=== PATIENT | female | born 1965 | race Caucasian/White ===

== ENCOUNTER 2020-02-26 05:42 | Day surgery (SDC) | payer OTHER, SELFPAY ==
[~2020-02-26] VITALS: Ht 157.5 cm; Wt 61.2 kg
[2020-02-26] MEDS ORDERED: SEVOFLURANE 250 ML BTL INH ONE (07:20)
[2020-02-26] MEDS ORDERED: MIDAZOLAM 2 MG/2 ML VIAL ONE (07:20)
[2020-02-26] MEDS ORDERED: DEXAMETHASONE 4 MG/ML VIAL ONE ×2 (07:20→19:34)
[2020-02-26] MEDS ORDERED: fentaNYL citrate 0.05 MG/ML VIAL ONE ×2 (07:20→19:34)
[2020-02-26] MEDS ORDERED: KETOROLAC 30 MG/ML VIAL ONE (07:20)
[2020-02-26] MEDS ORDERED: ONDANSETRON 4 MG/2 ML VIAL ONE ×2 (07:20→19:34)
[2020-02-26] MEDS ORDERED: PROPOFOL 200 MG/20 ML VIAL IV ONE ×2 (07:20→19:34)
[2020-02-26] MEDS ORDERED: KETOROLAC 30 MG/ML VIAL IVP SCH (07:30)
[2020-02-26] MEDS ORDERED: diphenhydrAMINE 50 MG/ML VIAL IVP PRN (08:00)
[2020-02-26] MEDS ORDERED: HYDROmorphone 1 MG/ML AMP IVP PRN (08:00)
[2020-02-26] MEDS ORDERED: ONDANSETRON 4 MG/2 ML VIAL IVP PRN (08:00)
[2020-02-26] MEDS ORDERED: MEPERIDINE 25 MG/ML SYR IVP PRN (08:00)
[2020-02-26] MEDS ORDERED: LACTATED RINGERS 1,000 ML IV SCH (08:00)
[2020-02-26] MEDS ORDERED: ePHEDrine 50 MG/ML VIAL ONE (19:34)
== END 2020-02-26 10:36 | disposition home or self-care (01) ==
LOC: MDS 05:42 → MMU 05:43 → MDS 10:36
PROVIDERS: ATTEND Obstetrics & Gynecology
DX: N92.0 Excessive and frequent menstruation with regular cycle (principal); N87.9 Dysplasia of cervix uteri, unspecified; E03.9 Hypothyroidism, unspecified; Z98.82 Breast implant status; Z90.89 Acquired absence of other organs; Z20.828 Contact with and (suspected) exposure to other viral communicable diseases
CPT/HCPCS: 36415; 58563; 71045; 81025; 86886; 86900; 86901; J1100; J1885; J2175; J2250; J2405; J2704; J3010; J7030; J7120; U0003; 88305

== ENCOUNTER 2022-05-07 09:02 | Day surgery (SDC) | payer OTHER ==
[~2022-05-07] VITALS: Ht 157.5 cm; Wt 70.3 kg
[2022-05-07 10:03] LABS: BASOPHILS % (AUTO) 0.6 % (0.0-2.0); EOSINOPHILS # (AUTO) 0.1 K/uL (0-0.4); HEMATOCRIT 39.3 % (36-48); HEMOGLOBIN 12.7 g/dL (12.0-16.0); LYMPHOCYTES # (AUTO) 2.9 K/uL (2.5-16.5); MEAN CORPUSCULAR HEMOGLOBIN 29 pg (27-31); MEAN CORPUSCULAR HGB CONC 32 g/dL (33-37); MEAN CORPUSCULAR VOLUME 88.9 fL (80-94); MONOCYTES # (AUTO) 0.5 K/uL (0.8-1.0); MONOCYTES % (AUTO) 8.9 % (1.7-9.3); NEUTROPHILS # (AUTO) 2.5 K/uL (1.8-7.7); NEUTROPHILS % (AUTO) 40.5 % (42.2-75.2); PLATELET COUNT (AUTO) 224 K/uL (140-450); RED BLOOD CELL COUNT(AUTO) 4.42 MIL/uL (4.20-5.40); RED CELL DISTRIBUTION WIDTH 13.6 % (11.6-13.7); WHITE BLOOD COUNT (AUTO) 6.1 K/uL (4.8-10.8)
[2022-05-07 10:19] LABS: ANION GAP 10.6 (8-16); CARBON DIOXIDE 27.5 mmol/L (21-32); CREATININE 0.4 mg/dL (0.6-1.3); POTASSIUM 4.1 mmol/L (3.5-5.1)
[2022-05-07 10:25] LABS: ALBUMIN 3.7 g/dL (3.4-5.0); ANION GAP 12.8 (8-16); CARBON DIOXIDE 26.4 mmol/L (21-32); CREATININE 0.4 mg/dL (0.6-1.3); POTASSIUM 5.2 mmol/L (3.5-5.1); TOTAL BILIRUBIN 0.5 mg/dL (0.0-1.0)
[2022-05-07] MEDS ORDERED: CONJUGATED ESTROGENS VAG CREAM 42 GM TUBE VG SCH (14:40)
[2022-05-07] MEDS ORDERED: BUPIVACAINE-MPF 0.25% 30 ML VIAL INJ ONE (14:42)
[2022-05-07] MEDS ORDERED: LIDOCAINE 1% 500 MG/50 ML VIAL ONE (14:43)
[2022-05-07] MEDS ORDERED: PROPOFOL 200 MG/20 ML VIAL IV ONE ×2 (15:52→15:55)
[2022-05-07] MEDS ORDERED: KETOROLAC 30 MG/ML VIAL ONE ×2 (15:52→16:01)
[2022-05-07] MEDS ORDERED: DESFLURANE 240 ML BTL INH ONE (15:52)
[2022-05-07] MEDS ORDERED: DEXAMETHASONE 4 MG/ML VIAL ONE ×2 (15:52→16:01)
[2022-05-07] MEDS ORDERED: fentaNYL citrate 0.05 MG/ML VIAL ONE ×2 (15:52→16:00)
[2022-05-07] MEDS ORDERED: ceFAZolin 2,000 MG VIAL ONE (15:52)
[2022-05-07] MEDS ORDERED: ONDANSETRON 4 MG/2 ML VIAL ONE ×2 (15:52→16:01)
[2022-05-07] MEDS ORDERED: BUPIVACAINE-MPF/EPI 0.5% 30 ML VIAL INJ ONE (16:10)
[2022-05-07] MEDS ORDERED: ONDANSETRON 4 MG/2 ML VIAL IVP PRN (16:55)
[2022-05-07] MEDS ORDERED: HYDROmorphone 1 MG/ML AMP IVP PRN (16:55)
[2022-05-07] MEDS ORDERED: KETOROLAC 30 MG/ML VIAL IVP SCH (18:40)
[2022-05-07 20:46] VITALS: BP 119/75
== END 2022-05-07 21:34 | disposition home or self-care (01) ==
LOC: MOR 09:02 → MMU 09:07 → MFCC 17:20 → MOR 21:34
PROVIDERS: ATTEND Obstetrics & Gynecology
DX: N39.3 Stress incontinence (female) (male) (principal); N81.11 Cystocele, midline; K21.9 Gastro-esophageal reflux disease without esophagitis; Z88.1 Allergy status to other antibiotic agents; Z88.8 Allergy status to other drugs, medicaments and biological substances
CPT/HCPCS: 36415; 57240; 57288; 71045; 80053; 84132; 85025; 86886; 86900; 86901; 87426; 93005; C1763; J0690; J1100; J1885; J2001; J2405; J2704; J3010; J3490; J7030; J7060; Q0092; 80048

== ENCOUNTER 2022-12-25 20:03 | Emergency (ER) | payer OTHER ==
[~2022-12-25] VITALS: Ht 157.5 cm; Wt 72.6 kg
[2022-12-25 20:39] VITALS: BP 123/80; PULSE 65; RESP 16; TEMP 97.1; O2SAT 100
[2022-12-25] MEDS ORDERED: ONDANSETRON 4 MG/2 ML VIAL IVP ONE (23:15)
[2022-12-25] MEDS ORDERED: NACL 0.9% 1,000 ML IV ONE (23:15)
[2022-12-25 23:26] VITALS: TEMP 97.1
[2022-12-25 23:40] LABS: BASOPHILS % (AUTO) 0.5 % (0.0-2.0); EOSINOPHILS # (AUTO) 0.1 K/uL (0-0.4); EOSINOPHILS % (AUTO) 1.4 % (0.0-4.0); HEMATOCRIT 43.2 % (36-48); HEMOGLOBIN 14.3 g/dL (12.0-16.0); LYMPHOCYTES # (AUTO) 4.2 K/uL (2.5-16.5); LYMPHOCYTES % (AUTO) 44.2 % (20.5-51.1); MEAN CORPUSCULAR HEMOGLOBIN 30 pg (27-31); MEAN CORPUSCULAR HGB CONC 33 g/dL (33-37); MEAN CORPUSCULAR VOLUME 89.7 fL (80-94); MONOCYTES # (AUTO) 0.7 K/uL (0.8-1.0); MONOCYTES % (AUTO) 7.4 % (1.7-9.3); NEUTROPHILS # (AUTO) 4.4 K/uL (1.8-7.7); NEUTROPHILS % (AUTO) 46.5 % (42.2-75.2); PLATELET COUNT (AUTO) 267 K/uL (140-450); RED BLOOD CELL COUNT(AUTO) 4.82 MIL/uL (4.20-5.40); WHITE BLOOD COUNT (AUTO) 9.4 K/uL (4.8-10.8)
[2022-12-25 23:56] LABS: ALBUMIN 4.1 g/dL (3.4-5.0); ANION GAP 12.8 (8-16); CALCIUM 9.3 mg/dL (8.5-10.1); CARBON DIOXIDE 28.2 mmol/L (21-32); CREATININE 0.7 mg/dL (0.6-1.3); TOTAL BILIRUBIN 0.4 mg/dL (0.0-1.0); TOTAL PROTEIN, SERUM 8.4 g/dL (6.4-8.2)
[2022-12-26 02:36] VITALS: BP 113/62; PULSE 62; RESP 14; O2SAT 96
[2022-12-26] MEDS ORDERED: ONDA-188 SL (05:03)
[2022-12-26] MEDS ORDERED: MECL-303 PO (05:03)
[2022-12-26] MEDS ORDERED: KETOROLAC 60 MG/2 ML VIAL IM ONE ×2 (05:30→05:32)
== END 2022-12-26 05:30 | disposition home or self-care (01) ==
LOC: MED 20:03
DX: R42 Dizziness and giddiness (principal); R11.10 Vomiting, unspecified; H81.10 Benign paroxysmal vertigo, unspecified ear; E07.9 Disorder of thyroid, unspecified; Z88.1 Allergy status to other antibiotic agents; Z88.2 Allergy status to sulfonamides; Z79.899 Other long term (current) drug therapy; Z98.890 Other specified postprocedural states; Z90.710 Acquired absence of both cervix and uterus
CPT/HCPCS: 36415; 70450; 70496; 70498; 80053; 85025; 96361; 96372; 96374; 99285; J1885; J2405; J7030; Q9967; 99284

== ENCOUNTER 2023-01-01 10:23 | Emergency (ER) | payer OTHER ==
[~2023-01-01] VITALS: Ht 162.6 cm; Wt 72.6 kg
[~2023-01-01 10:23] MED LIST: MECL-303 PO; ONDA-188 SL
[2023-01-01 10:33] VITALS: BP 106/71; PULSE 75; RESP 18; TEMP 98; O2SAT 100
[2023-01-01] MEDS ORDERED: MORPHINE SULFATE 4 MG/ML SYR IVP ONE (11:45)
[2023-01-01] MEDS ORDERED: ONDANSETRON 4 MG/2 ML VIAL IVP ONE (11:45)
[2023-01-01 12:09] LABS: BASOPHILS % (AUTO) 0.3 % (0.0-2.0); EOSINOPHILS # (AUTO) 0.1 K/uL (0-0.4); EOSINOPHILS % (AUTO) 1.7 % (0.0-4.0); HEMATOCRIT 37.6 % (36-48); HEMOGLOBIN 12.5 g/dL (12.0-16.0); LYMPHOCYTES # (AUTO) 3.1 K/uL (2.5-16.5); LYMPHOCYTES % (AUTO) 39.2 % (20.5-51.1); MEAN CORPUSCULAR HEMOGLOBIN 30 pg (27-31); MEAN CORPUSCULAR HGB CONC 33 g/dL (33-37); MEAN CORPUSCULAR VOLUME 88.9 fL (80-94); MONOCYTES # (AUTO) 0.6 K/uL (0.8-1.0); MONOCYTES % (AUTO) 7.8 % (1.7-9.3); PLATELET COUNT (AUTO) 221 K/uL (140-450); RED BLOOD CELL COUNT(AUTO) 4.23 MIL/uL (4.20-5.40); RED CELL DISTRIBUTION WIDTH 13.6 % (11.6-13.7); WHITE BLOOD COUNT (AUTO) 7.9 K/uL (4.8-10.8)
[2023-01-01 12:31] LABS: ALBUMIN 3.6 g/dL (3.4-5.0); ANION GAP 9.5 (8-16); CARBON DIOXIDE 27.8 mmol/L (21-32); CREATININE 0.5 mg/dL (0.6-1.3); POTASSIUM 4.3 mmol/L (3.5-5.1); TOTAL BILIRUBIN 0.5 mg/dL (0.0-1.0); TOTAL PROTEIN, SERUM 7.5 g/dL (6.4-8.2)
[2023-01-01 13:25] LABS: APPEARANCE,URINE CLEAR (CLEAR); BILIRUBIN,URINE NEGATIVE (NEGATIVE); BLOOD, URINE NEGATIVE (NEGATIVE); COLOR,URINE YELLOW (YELLOW); LEUKOCYTE ESTERASE ,URINE NEGATIVE (NEGATIVE); NITRITE, URINE NEGATIVE (NEGATIVE); PH,URINE 7.5 (5.0-9.0); PROTEIN,URINE NEGATIVE (NEGATIVE); UGLUCOSE NEGATIVE (NEGATIVE); UROBILINOGEN,URINE 0.2 EU/dL (0.2 - 1)
[2023-01-01] MEDS ORDERED: CYCL-711 PO (13:37)
[2023-01-01] MEDS ORDERED: ACET-10509 PO (13:37)
[2023-01-01] MEDS ORDERED: IBUP-2218 PO (13:37)
[2023-01-01 14:13] VITALS: BP 100/52; PULSE 68; RESP 20; TEMP 98.2; O2SAT 100
== END 2023-01-01 14:14 | disposition home or self-care (01) ==
LOC: MED 10:23
DX: S39.011A Strain of muscle, fascia and tendon of abdomen, initial encounter (principal); M54.31 Sciatica, right side; Z88.1 Allergy status to other antibiotic agents; Z88.2 Allergy status to sulfonamides; Z79.899 Other long term (current) drug therapy; Z98.890 Other specified postprocedural states; X58.XXXA Exposure to other specified factors, initial encounter; Y93.89 Activity, other specified; Y92.89 Other specified places as the place of occurrence of the external cause; Y99.8 Other external cause status
CPT/HCPCS: 36415; 74176; 80053; 81003; 83690; 85025; 96374; 96375; 99285; J2270; J2405